=== PATIENT | female | born 1950 | race Caucasian/White ===

== ENCOUNTER → 2016-06-01 | Outpatient (CLI) | payer BC ==
[~2016-06-01] MED LIST: ATIVAN0.5 MG PO; AUGMENTIN875 MG PO; CALCIUM PO; CALTRATE 600 +1 EAC1 PO; COLACE100 MG PO; NORCO 5/3251 TABLET PO; OMEPRAZOLE40 M1 PO; OXAYDO5 MG PO; SUPER B COMP1 TABLET PO; VIT D PO; VIT E PO; VITAMIN D400 UNI1 PO; VITAMIN E400 UNIT PO; ZOFRAN4 MG PO
== END | disposition home or self-care (01) ==
LOC: NUC 08:00
DX: C50.919 Malignant neoplasm of unspecified site of unspecified female breast (principal); Z17.0 Estrogen receptor positive status [ER+]; Z92.21 Personal history of antineoplastic chemotherapy; Z79.899 Other long term (current) drug therapy
CPT/HCPCS: 78472; A9512; A9560

== ENCOUNTER → 2016-08-29 | Outpatient (CLI) | payer OTHER, BC | END | disposition home or self-care (01) | LOC: NUC 12:59 | DX: C50.919 Malignant neoplasm of unspecified site of unspecified female breast (principal); Z17.0 Estrogen receptor positive status [ER+] | CPT/HCPCS: 78472; A9512; A9560 ==

== ENCOUNTER → 2016-11-21 | Outpatient (CLI) | payer OTHER, BC | END | disposition home or self-care (01) | LOC: NUC 13:36 | DX: Z01.818 Encounter for other preprocedural examination (principal); I50.9 Heart failure, unspecified; C50.919 Malignant neoplasm of unspecified site of unspecified female breast | CPT/HCPCS: 78472; A9560 ==

== ENCOUNTER → 2016-12-26 | Outpatient (CLI) | payer OTHER, BC ==
[~2016-12-26] MED LIST changes: +ARIMIDEX1 MG PO; +XARELTO20 MG PO
== END | disposition home or self-care (01) ==
LOC: AMB 10:00
PROC: 0JPT0XZ Removal of Tunneled Vascular Access Device from Trunk Subcutaneous Tissue and Fascia, Open Approach (ICD-10-PCS; principal; 2016-12-26)
DX: I87.8 Other specified disorders of veins (principal); Z85.3 Personal history of malignant neoplasm of breast

== ENCOUNTER → 2017-02-15 | Outpatient (CLI) | payer MEDICARE, BC | END | disposition home or self-care (01) | LOC: CDC 14:25 | DX: Z01.810 Encounter for preprocedural cardiovascular examination (principal) | CPT/HCPCS: 93000 ==

== ENCOUNTER 2017-04-11 10:23 | Day surgery (SDC) | payer OTHER, BC ==
[~2017-04-11] VITALS: Ht 167.6 cm; Wt 77.1 kg
[~2017-04-11 10:23] MED LIST changes: +AMBIEN10 MG PO; +BIOTIN10 MG PO; +CYANOCOBALAM1000 MCG PO; +NASACORT10.8 ML BOTH NARES; +TRANSDERM-SCOP1 EACH TD; +TYLENOL EXTRA500 MG PO; +VITAMIN B-6100 MG PO; +VITAMIN D34000 UNIT PO; -VITAMIN D400 UNI1 PO; +XANAX0.5 MG PO
[2017-04-11 11:04] VITALS: BP 141/73
[2017-04-11 18:08] VITALS: BP 171/82
[2017-04-11 20:00] VITALS: BP 135/66
[2017-04-11 23:42] VITALS: BP 129/67
[2017-04-12 03:23] VITALS: BP 113/53
[2017-04-12 07:35] VITALS: BP 116/65
== END 2017-04-12 12:45 | disposition home or self-care (01) ==
LOC: SDC 10:23 → 2SOUTH 12:57 → ENRESERV 12:59 → SDC 15:54 → 2EAST 18:08
DX: Z42.1 Encounter for breast reconstruction following mastectomy (principal); Z90.12 Acquired absence of left breast and nipple; K21.9 Gastro-esophageal reflux disease without esophagitis; Z92.3 Personal history of irradiation; Z85.3 Personal history of malignant neoplasm of breast; Z80.3 Family history of malignant neoplasm of breast; Z80.1 Family history of malignant neoplasm of trachea, bronchus and lung; Z80.41 Family history of malignant neoplasm of ovary; Z80.0 Family history of malignant neoplasm of digestive organs; Z92.21 Personal history of antineoplastic chemotherapy; Z87.891 Personal history of nicotine dependence
CPT/HCPCS: G0378; J0131; J0171; J0690; J1100; J1170; J2250; J2405; J2710; J3010; Q0175

== ENCOUNTER 2017-07-04 10:39 | Day surgery (SDC) | payer OTHER, BC ==
[~2017-07-04] VITALS: Ht 167.6 cm; Wt 77.1 kg
[2017-07-04 11:12] VITALS: BP 138/72
[2017-07-04 16:03] VITALS: BP 137/75
[2017-07-04 17:00] VITALS: BP 124/55
[2017-07-04 17:32] VITALS: BP 128/55
== END 2017-07-04 17:37 | disposition home or self-care (01) ==
LOC: SDC 10:39
PROC: 0H0T0ZZ Alteration of Right Breast, Open Approach (ICD-10-PCS; principal; 2017-07-04)
DX: N65.1 Disproportion of reconstructed breast (principal); N64.89 Other specified disorders of breast; K21.9 Gastro-esophageal reflux disease without esophagitis; Z90.12 Acquired absence of left breast and nipple; Z85.3 Personal history of malignant neoplasm of breast; Z92.21 Personal history of antineoplastic chemotherapy; Z80.3 Family history of malignant neoplasm of breast; Z87.891 Personal history of nicotine dependence; Z88.2 Allergy status to sulfonamides; Z88.1 Allergy status to other antibiotic agents
CPT/HCPCS: 88305; J0131; J0690; J1170; J1885; J2250; Q0175; S0020